=== PATIENT | female | born 1945 | race Caucasian/White ===

== ENCOUNTER → 2020-10-28 16:04 | Outpatient (CLI) | payer MEDICARE, SELFPAY ==
[2020-10-28 09:46] VITALS: BMI 30.8
[2020-10-28 17:29] LABS: Probe Check PASS; Specimen Processing Control PASS
== END ==
PROVIDERS: Visit Provider Physician Assistant
DX: Z20.828 Contact with and (suspected) exposure to other viral communicable diseases (principal)
CPT/HCPCS: 87635; U0002